=== PATIENT | male | born 1955 | race Caucasian/White ===

== ENCOUNTER 2018-07-26 07:41 | Day surgery (SDC) | payer OTHER | END 2018-07-26 09:57 | disposition home or self-care (01) | LOC: FASU-ENDO 07:41 ==

== ENCOUNTER 2021-03-05 09:34 | Emergency (ER) | payer OTHER, BC ==
[2021-03-05 09:40] VITALS: BP 122/64; PULSE 50; TEMP 98.6; BMI 25.0
== END 2021-03-05 10:38 | disposition home or self-care (01) ==
LOC: FER 09:34
DX: M25.512 Pain in left shoulder (principal); W01.0XXA Fall on same level from slipping, tripping and stumbling without subsequent striking against object, initial encounter
CPT/HCPCS: 73030-TC-LT-FY; 99283-25